=== PATIENT | female | born 1965 | race Caucasian/White ===

== ENCOUNTER 2018-07-04 07:53 | Emergency (ER) | payer BC, OTHER ==
--- NOTE | 2018-07-04 08:05 | UC ---
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 No previous hx. of ankle sprains, fractures or operations. Mild pain. Worse with ambulation. Relieved with non weight bearing. MD note: vital signs stable. Vital signs beyond normal range reviewed. Nurses Note Reviewed. "left ankle pain since yesterday - was jumping around and may have landed on foot wrong. noticed pain shortly afterwards. had pain when ambulating this morning" Visit History Reviewed. Noncontributory to present complaint. Medications & Allergies Reviewed. - History of Current Complaint Stated Complaint: ANKLE INJURY Time Seen by Provider: 07/04/18 07:59 Hx Obtained From: Patient Hx Last Menstrual Period: 02/20 ?: No Severity Initially: Mild - Allergies/Home Medications Allergies/Adverse Reactions: Allergies Allergy/AdvReac Type Severity Reaction Status Date / Time Penicillins Allergy Hives Verified 07/04/18 08:12 ANSON GRASS Allergy Severe EYE Uncoded 07/04/18 08:12 SWELLING, CONGESTION, TROUBLE BREATHING CAT DANDER Allergy Mild EYE Uncoded 07/04/18 08:12 SWELLING, CONGESTION Home Medications: Home Medications Cetirizine* [ZyrTEC 10 MG TAB*] 10 mg PO DAILY 07/04/18 [History Confirmed 07/04] PMH/Surg Hx/FS Hx/Imm Hx - Additional Past Medical History Additional PMH: PMH reviewed. No significant illness, surgery or hospitalization. Family History: -Denies hypertension, heart disease, stroke, diabetes, cancer. 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 The remainder of the review was negative except as stated above in the ROS or HPI. Physical Exam - Summary Physical Exam Summary: Appearance: The patient is well-appearing, is in no pain or distress, and is well-nourished. Eyes: Conjunctiva are clear. Pupils are equal and reactive to light and accommodation. Extra ocular muscle movement is intact. ENT: The hearing is grossly normal, the pharynx is normal, and the TMs are normal. There is no muffled or hoarse voice. No stridor. Neck: The neck is supple and there is no lymphadenopathy. Respiratory: The chest is nontender to palpation and without crepitus. The lungs are clear, there are normal breath sounds, and there is no respiratory distress. No wheezes, rales or rhonchi. Cardiovascular: Heart sounds reveal a regular rate and rhythm. There are no clicks, rubs or murmurs. There are no carotid bruits or thrills. Circulation is grossly intact. Abdomen: The abdomen is soft and nontender. There is no organomegaly. Bowel sounds are present and within normal limits. No point tenderness at McBurneys point. Musculoskeletal: Strength is intact. The patient moves all extremities. Pain with weight bearing left ankle lateral. No edema. Negative anterior drawer sign. Minimal tenderness with palpation. Neurological: The patient is alert. Motor and sensory are examination grossly intact. Speech is normal. Psychological: The patient displays age appropriate behavior Skin: Negative for rashes. 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 X ray: negative for fracture. Diagnosis is first degree ankle sprain. Alvino, gelcast and crutches given with gradual weight bearing recommended. MEDICATIONS REVIEWED: Medications have been included in the original chart and reviewed. HYPERTENSION STATUS REVIEWED. - Differential Dx/Diagnosis Differential Diagnosis/HQI/PQRI: Bursitis, Contusion, Sprain Provider Diagnosis: Left ankle sprain Discharge - Sign-Out/Discharge Documenting (check all that apply): Patient Departure All imaging exams completed and their final reports reviewed: Yes - Discharge Plan Condition: Stable Disposition: HOME Patient Education Materials: Ankle Sprain (DC) Referrals: Brian Manning MD [Medical Doctor] - Additional Instructions: WE DISCUSSED: PLEASE SEEK CARE AT THE EMERGENCY DEPARTMENT IF SYMPTOMS WORSEN OR IF NEW SYMPTOMS DEVELOP. FOLLOW UP WITH YOUR PRIMARY CARE PHYSICIAN IF CONDITION CONTINUES BEYOND 3 DAYS WITHOUT IMPROVEMENT. We are open from 7 a.m. to 10 p.m. Call us with any questions or concerns. YOUR DIAGNOSIS IS: FIRST DEGREE ANKLE SPRAIN, LEFT; there is no evidence that you've injured her Achilles tendon or your foot.. YOUR PRESCRIPTION RECOMMENDATION IS: No medications OTHER INSTRUCTIONS: Use the Alvino wrap, gel cast and crutches and gradually put more weight on your foot when you couldn't step, twisted pushoff and are totally pain-free you can go back to normal activity. For pain: Ibuprofen (Motrin and other brand names) 400-600mg PLUS acetaminophen (Tylenol and other brand names) 500mg - 1000mg every 8 hours. Maximum is 3 doses a day. If this dosage is required for more than 5 days, you should re-check with your doctor. The combination of these two over-the- counter medications can be more effective than each one taken alone. Please check with the pharmacist if you have questions about your allergies to these medications. - Billing Disposition and Condition Condition: STABLE Disposition: Home
--- OUTSIDE RECORDS SUMMARY | 2018-07-04 08:07 | XMS REPORT | Continuity of Care Document ---
:1965 External Reference #:[id number] Author Name Triny Tai M.D. 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 [address] PayID: [id number] JIMMY [place] [address] Advance Directives Description No Information Available Problems Description No Information Family History Date Family Member(s) Observation Comments Mother Cancer, Cervical Children 2 Social History Type Date Description Comments Sex Unknown Marital Status Lives With Spouse Lives With , Tariq Zimmer, and two children. Tobacco Use Start: Unknown Never Smoked Cigarettes Allergies, Adverse Reactions, Alerts Date Description Reaction Status Severity Comments 05/30/2002 Amoxicillin Active 11/17/2003 PCN Active itching. Medications Medication Date Status Form Strength Qnty SIG Indications Ordering Provider Ondansetron 06/18 Active Tablets 4mg 6tabs 1 by mouth G43.009 Triny /2018 Dispers twice per P. day as Blegen, needed M.D. nausea/ vomiting Acetaminophen-Co 06/18 Active Tablets 300-30mg 6tabs take 1-2 G43.009 Triny whyte #3 tablets by P. mouth up to Blegen, twice per M.D. day as needed for persistent migraine Multiple Vitamin 06/18 Active Tablets 1 by mouth Triny every day P. Blegen, M.D. Vitamin D-3 06/18 Active Capsules 1000Unit 1 by mouth every day Anjelica Tai M.D. Tumeric 06/18 Active supplement Anjelica Tai M.D. No Active 06/18 Hx Unknown Medications - 06/18 No Active 07/26 Hx Unknown Medications - 07/26 Doxycycline 07/26 Hx Capsules 100mg 20cap 1 take by Brian Hyrandeeate /2017 s mouth [place] - capsule 2 , 06/18 times day for 10 days for infection Pseudoephedrine 07/26 Hx Tablets 30mg 60tab 1 tab by J01.41 Brian HCL s mouth three [place] - times a day , 06/18 congestion Fluticasone 07/26 Hx Suspension 50mcg/Act 1unit 1 puff J01.41 Brian Propionate s daily [place] - , 06/18 Azithromycin 05/12 Hx Tablets 250mg 6tabs take 2 Brian tablets by [place] - mouth one , 07/26 time take one daily for 4 days Pseudoephedrine 01/13 Hx Tablets 30mg 60tab 1 tab by J01.41 Brian HCL s mouth three [place] - times a day , 07/26 congestion Fluticasone 01/13 Hx Suspension 50mcg/Act 1unit 1 puff J01.41 Brian Propionate s daily [place] - , 07/26 Guaifenesin-Code 07/22 Hx Syrup 100-10mg/ 240ml 1-2 J01.41 Precious ine 5ML teaspoon Otoniel, - every 4-6 CERTIFIED ART THERAPIST-C 07/26 hours needed cough Ceftin 06/16 Hx Tablets 500mg 20tab 1 by mouth J01.41 Precious /2014 s twice a day Otoniel, - for 10 days CERTIFIED ART THERAPIST-C 07/26 for sinus infection Nasonex 10/23 Hx Suspension 50mcg/Act 17gm 2 sprays 381.04 José Miguelwnti /2013 each Guillaume Mcpherson, - nostril CERTIFIED ART THERAPIST-C 07/26 daily for rhinitis and ear pressure No Active 04/18 Hx Unknown Medications /2012 - 10/23 Azithromycin 04/01 Hx Tablets 250mg 6tabs take 2 tablets Otoniel, - today then CERTIFIED ART THERAPIST-C 04/18 1 tablet daily for the next 4 days Cefuroxime 03/13 Hx Tablets 250mg 20tab one po bid 381.01 Precious Axetil s for 10 days Tanesha Frederick CERTIFIED ART THERAPIST-C 04/18 Nasonex 06/16 Hx Suspension 50mcg/Act 1mont 2 sprays 381.81 Shawnti /2011 h each Guillaume Mcpherson, - nostril CERTIFIED ART THERAPIST-C 04/18 daily for rhinitis Zithromax Z-Mayo 06/11 Hx Tablets 250mg 6tabs Two PO qd Today And K.W. - Then One PO Vin, 06/17 qd For 4 M.D. /2006 Days Zithromax Z-Mayo 01/17 Hx Tablets 250mg 1Pack two po qd today and P. - then one po Blegen, 06/11 qd for 4 M.D. /2006 days Zithromax 04/18 Hx Tablets 500mg 3tabs 1 qd x 3 461.8 days for Guillaume Mcpherson, - sinus CERTIFIED ART THERAPIST-C 04/18 infection, may repeat in 10 days if needed Zithromax Z-Mayo 04/09 Hx Tablets 250mg 6tabs Two PO qd Today And P. - Then One PO Blegen, 04/18 qd For 4 M.D. Days Zithromax Z-Mayo 03/04 Hx Tablets 250mg 6tabs 2 po on day 786.2 Alicia /2003 1, 1 po on A. - days 2-5 Naomi, 12/30 F.N.P.C. /2004 Tylenol W03/04 Hx Tablets 300mg;30 15tab one or tWO 786.2 Alicia Codeine #3 /2004 mg s Tabs PO A. - Every 4-6 Naomi, 12/30 Hours prn F.N.P.C. /2004 Cough Cephalexin 04/18 Hx Capsules 500mg 14cap one po bid s x 7 days Tanesha Dominguez M.DBhavani 05/04 Gentamycin Ophth 04/18 Hx 1 drop each Roberto Carlos eye qid Laceyinger - until clear Catalina 12/30 Meclizine 12/25 Hx Tablets 25mg 60tab 1 tab po qd s - bid Tanesha Roe M.DBhavani 12/30 Zithromax 08/29 Hx Tablets 250mg 10tab 2 Pills s Each Day X5 Anton, - Days COO 08/29 Zithromax 05/30 Hx Tablets 250mg 6tabs 2 on day one, then [place], - one qd x4 COO Medications Administered in Office Medication Date Status Form Strength Qnty SIG Indications Ordering Provider Injection Administered Injection Triny Ketorolac 019 P. Blegen, Tromethamine M.D. Per 15 MG (Toradol) Immunizations CPT Code Status Date Vaccine Lot # [id number] Given 06/18/2018 Tdap (Adacel) [id number] Given 01/23/2018 Influenza Virus Vaccine, Quadrivalent, 3 Yr > Quad, Preserv Free [id number] Given 10/24/2001 DT (Adult) Vital Signs Date Vital Result Comment 06/18/2018 4:16pm Weight 170.00 lb Weight 77.112 kg BP Systolic 110 mmHg BP Diastolic 72 mmHg Heart Rate 70 /min Body Temperature 97.8 F Respiratory Rate 16 /min O2 % BldC Oximetry 98 % 07/26/2017 2:08pm Weight 153.00 lb Weight 69.401 kg BP Systolic 102 mmHg BP Diastolic 70 mmHg Heart Rate 80 /min Body Temperature 97.6 F Respiratory Rate 16 /min 05/12/2015 9:49am Weight 157.00 lb Weight 71.215 kg BP Systolic 104 mmHg BP Diastolic 68 mmHg Heart Rate 67 /min Body Temperature 99.9 F O2 % BldC Oximetry 98 % 01/13/2015 11:50am Weight 153.00 lb Weight 69.401 kg BP Systolic 108 mmHg BP Diastolic 70 mmHg Heart Rate 76 /min Body Temperature 97.6 F 07/22/2014 8:19am Weight 156.00 lb Weight 70.762 kg BP Systolic 98 mmHg BP Diastolic 70 mmHg Heart Rate 93 /min Body Temperature 100.3 F O2 % BldC Oximetry 96 % on room air 06/16/2014 4:05pm Weight 163.00 lb Weight 73.937 kg BP Systolic 110 mmHg BP Diastolic 70 mmHg Heart Rate 72 /min Body Temperature 96.7 F O2 % BldC Oximetry 97 % 10/23/2013 11:48am Weight 155.00 lb Weight 70.308 kg BP Systolic 98 mmHg BP Diastolic 66 mmHg Heart Rate 72 /min Body Temperature 96.8 F 04/18/2013 2:22pm Weight 154.00 lb Weight 69.854 kg BP Systolic 110 mmHg BP Diastolic 64 mmHg Heart Rate 68 /min Body Temperature 97.8 F 03/13/2012 10:55am Weight 146.00 lb Weight 66.226 kg BP Systolic 96 mmHg BP Diastolic 64 mmHg Heart Rate 66 /min Body Temperature 97.9 F O2 % BldC Oximetry 99 % 09/04/2011 12:09pm Weight 140.00 lb Weight 63.504 kg BP Systolic 94 mmHg BP Diastolic 56 mmHg Heart Rate 73 /min Body Temperature 97.4 F O2 % BldC Oximetry 98 % 06/16/2011 10:27am Weight 140.00 lb Weight 63.504 kg BP Systolic 90 mmHg BP Diastolic 60 mmHg Heart Rate 84 /min Body Temperature 97.7 F 06/16/2010 2:34pm Weight 144.00 lb Weight 65.318 kg BP Systolic 94 mmHg BP Diastolic 60 mmHg Heart Rate 76 /min Body Temperature 97.7 F 05/28/2008 8:48am Weight 152.00 lb Weight 68.947 kg BP Systolic 108 mmHg BP Diastolic 70 mmHg Body Temperature 96.8 F oral 05/26/2008 2:05pm Weight 156.00 lb Weight 70.762 kg BP Systolic 120 mmHg BP Diastolic 70 mmHg Body Temperature 96.8 F oral 06/14/2006 1:06pm Weight 153.00 lb Weight 69.401 kg BP Systolic 130 mmHg BP Diastolic 60 mmHg Body Temperature 97.0 F Height 62.5 inches 5'2.50" BMI (Body Mass Index) 27.5 kg/m2 05/25/2006 11:14am Weight 152.00 lb Weight 68.947 kg BP Systolic 100 mmHg BP Diastolic 60 mmHg Body Temperature 97.8 F Height 62.5 inches 5'2.50" BMI (Body Mass Index) 27.4 kg/m2 01/17/2006 9:39am Weight 151.00 lb Weight 68.494 kg BP Systolic 120 mmHg BP Diastolic 70 mmHg Heart Rate 64 /min Body Temperature 96.8 F Height 62.5 inches 5'2.50" BMI (Body Mass Index) 27.2 kg/m2 12/06/2005 12:55pm Weight 149.00 lb Weight 67.586 kg BP Systolic 108 mmHg BP Diastolic 62 mmHg Heart Rate 60 /min Height 62.5 inches 5'2.50" BMI (Body Mass Index) 26.8 kg/m2 Last Menstrual Period [id number] 04/18/2005 9:19am Weight 145.00 lb Weight 65.772 kg BP Systolic 100 mmHg BP Diastolic 60 mmHg Body Temperature 97.7 F 12/30/2004 2:27pm Weight 148.00 lb Weight 67.133 kg BP Systolic 120 mmHg BP Diastolic 60 mmHg Body Temperature 98.8 F 03/04/2004 11:25am Weight 148.00 lb Weight 67.133 kg BP Systolic 118 mmHg BP Diastolic 70 mmHg Body Temperature 97.0 F 11/17/2003 1:54pm Weight 147.00 lb Weight 66.679 kg BP Systolic 110 mmHg BP Diastolic 64 mmHg Body Temperature 97.0 F 04/24/2003 10:51am Weight 148.00 lb Weight 67.133 kg BP Systolic 100 mmHg BP Diastolic 60 mmHg Body Temperature 97.1 F 12/25/2002 10:18am Weight 145.00 lb Weight 65.772 kg BP Systolic 94 mmHg BP Diastolic 62 mmHg Heart Rate 64 /min Body Temperature 97.2 F 08/29/2002 9:36am Weight 150.00 lb Weight 68.040 kg BP Systolic 100 mmHg BP Diastolic 60 mmHg Body Temperature 98.1 F 05/30/2002 2:21pm Weight 148.00 lb Weight 67.100 kg BP Systolic 100 mmHg BP Diastolic 60 mmHg Body Temperature 97.3 F 10/31/2001 11:15am Weight 149.00 lb Body Temperature 97.2 F Results Test Date Facility Test Result H/L Range Note Laboratory test 01/13/2015 [facility] Laboratory Culture SEE RESULT 1 finding [phone] Throat BELOW CBC 12/06/2005 [facility] WBC 6.9 x103 4.3-10.9 [phone] RBC 4.39 x106 3.80-5.30 Hemoglobin 13.3 g/dL 11.8-15.8 Hematocrit 39.3 % 35.0-47.0 MCV 89.4 fl 82.0-98.0 MCH 30.4 pg 27.5-33.5 MCHC 34.0 g/dL 32.0-36.0 RDW 12.8 % 11.5-14.5 Platelet Count 187 x103 130-400 MPV 10.0 fl 6.5-10.5 Segmented Neutrophils 65.7 % 44.0-74.0 Lymphocytes 26.6 % 15.0-45.0 Monocytes 6.5 % 2.0-13.0 Eosinophils 0.7 % 0.0-6.0 Basophils 0.5 % 0.0-2.0 Neutrophil Absolute 4.5 x103 1.4-7.0 Lymphocytes Absolute 1.8 x103 1.0-3.4 Monocyte Absolute 0.4 x103 0.2-1.0 Eosinophil Absolute 0.0 x103 0.0-0.5 Basophil Absolute 0.0 x103 0.0-0.2 Regional Allergy 12/06/2005 [facility] Interpretation * 2 Panel [phone] Total Ige 315.00 kU/L 3 Jim Grass 3.42 kU/L AB --- Class II AB B[place] Grass <0.35 kU/L --- Class 0 Common Ragweed <0.35 kU/L --- Class 0 Slovenian Plaintain <0.35 kU/L --- Class 0 [place] <0.35 kU/L --- Class 0 Elm <0.35 kU/L --- Class 0 Cladospor/Hormodendrum <0.35 kU/L --- Class 0 A. Tenuis <0.35 kU/L --- Class 0 D. Farinae <0.35 kU/L --- Class 0 Milk <0.35 kU/L --- Class 0 Soybean <0.35 kU/L --- Class 0 Wheat <0.35 kU/L --- Class 0 Cat Dander 0.49 kU/L AB --- Class I AB Dog Dander <0.35 kU/L --- Class 0 Cockroach <0.35 kU/L --- Class 0 Tree Allergen Panel 12/06/2005 [facility] Isabella <0.35 kU/L [phone] --- Class 0 Maple/[place] <0.35 kU/L --- Class 0 Bashir <0.35 kU/L --- Class 0 [place] <0.35 kU/L --- Class 0 Birch <0.35 kU/L --- Class 0 [place] <0.35 kU/L --- Class 0 [place] <0.35 kU/L [place] <0.35 kU/L --- Class 0 Syrian Beech <0.35 kU/L --- Class 0 [place] <0.35 kU/L --- Class 0 [place] (Tree) <0.35 kU/L --- Class 0 [place] (Tree) <0.35 kU/L [place] <0.35 kU/L --- Class 0 Laboratory 12/06/2005 [facility] Laboratory Cytology ----- 4, 5 test finding [phone] <SEE NOTE> Laboratory 03/04/2004 [facility] Strep Screen NEG Neg test finding (607)- - Laboratory 11/17/2003 [facility] Strep Screen NEG Neg test finding (607)- - Laboratory 08/29/2002 [facility] Strep Screen POSITIVE Neg test finding (607)- - 1 SEE RESULT BELOW Name: PAWEL ZIMMER : [address]: Brian Manning MD Acct: [id number] Unit: [id number] AGE: 49 Location: [facility] Re01/13/15 SEX: F Status: REG REF SPEC: [id number] LESLIE: 01/13/15-12[address] [facility] [address]: Brian Manning MD REQ: [id number] RECD: 01/13/15 STATUS: COMP _ SOURCE: THROAT SPDESC: ORDERED: Throat Culture Procedure Result Verified Site Throat Culture Final 01/15/15827 ML Organism 1 NORMAL CHICHI Quantity 3+ * ML - MAIN LAB ([facility]) . END OF REPORT * ML=Testing performed at Main Lab DEPARTMENT OF PATHOLOGY, [address] [place] [address] Patrice Fong M.D. Director [facility] # [id number] 2 . Levels of Specific IgE Class Description of Class <0.35 kU/L O Absent/Undetectable 0.35 - 0.70 kU/L I Low 0.70 - 3.50 kU/L II Moderate 3.60 - 17.50 kU/L III High 17.50 - 50.00 kU/L IV Very High 50.00 - 100.00 kU/L V Very High >100.00 kU/L Very High 3 <25 kU/L: Negative 25-100 kU/L: Borderline >100 kU/L: Positive 4 SHared result with patient on phone, and she will RTO yearly for paps. 5 --- RUN DATE: 12/12/05 [facility] NMI LIVE PAGE 1 RUN TIME: 1559 Specimen Inquiry RUN USER: INTERFACE [id number] PAWEL ZIMMER 40/F <REG REF 12/06> ([id number]) Nadira Chow MD. -- Specimen: [id number] LAURO Spec Date: 12/06/[address]: Monica Banuelos MD. Spec Type: CYTOLOGY Received: 12/08/05-1433 Copies to: SOURCE ECTOCERVICAL/ENDOCERVICAL Thin Prep with Reflex HPV Test PATIENT INFORMATION ACTUAL COLLECTION DATE: 12/06/05 LAST MENSTRUAL PERIOD: 11/22/05 ADEQUACY OF SPECIMEN Satisfactory for evaluation * Transformation zone component not identified * DIAGNOSIS NEGATIVE FOR INTRAEPITHELIAL LESION OR MALIGNANCY * The Pap Smear is a screening test designed to aid in the detection of premalign ant and malignant conditions of the uterine cervix. It is not a diagnostic procedure an d should not be used as the sole means of detecting cervical cancer. Both false-positive and false-negative reports do occur. Depending on your risk status, a Pap smear supa uld be obtained and evaluated every one to three years. Signed Cameron CONTRERAS(ASCP) 12/12/05 -- -- DEPARTMENT OF PATHOLOGY, [address] [place] [address] [facility] Permit #[id number] Conner Hooker II, M.D. Director Patrice Fong M.D. Cotton Weigher Operator D irector -- Procedures Description No Information Available Encounters Type Date Location Provider Dx Diagnosis Office Visit 07/26/2017 Main Office Yasmine Dumont.90 Acute sinusitis, 2:00p unspecified Office Visit 05/12/2015 Main Office Yasmine Dumont.90 Acute sinusitis, 9:15a unspecified Office Visit 01/13/2015 Main Office Alexia Dumont01.41 Acute recurrent 11:45a pansinusitis Office Visit 07/22/2014 Main Office Precious Frederick, 461.8 Sinusitis Acute Other 8:15a CERTIFIED ART THERAPIST-C Office Visit 06/16/2014 Main Office Kane Mcpherson, 465.9 URI Upper 4:00p CERTIFIED ART THERAPIST-C Respiratory Infections Acute Unspec Sites 461.8 Sinusitis Acute Other Office Visit 10/23/2013 11:45a Main Office Kane Galaviz 381.04 Otitis Media Storm, CERTIFIED ART THERAPIST-C Allergic Serous Acute Office Visit 04/18/2013 2:15p Main Office Kane Galaviz 465.9 URI Upper Storm, CERTIFIED ART THERAPIST-C Respiratory Infections Acute Unspec Sites Office Visit 03/13/2012 10:45a Main Office Precious Frederick 381.01 Otitis Media Serous CERTIFIED ART THERAPIST-C Acute Office Visit 09/04/2011 12:00p Main Office Kane Galaviz 461.8 Sinusitis Acute Storm, CERTIFIED ART THERAPIST-C Other Office Visit 06/16/2011 10:00a Main Office Kane Galaviz 381.81 Eustachian Tube Storm, CERTIFIED ART THERAPIST-C Dysfunction Office Visit 06/16/2010 2:30p Main Office Walter Roe M.D. 381.81 Eustachian Tube Dysfunction Office Visit 05/28/2008 8:45a Main Office Kane Galaviz 461.8 Sinusitis Acute Storm, CERTIFIED ART THERAPIST-C Other Office Visit 05/26/2008 2:00p Main Office Kane Galaviz 465.9 URI Upper Storm, CERTIFIED ART THERAPIST-C Respiratory Infections Acute Unspec Sites Office Visit 06/14/2006 1:00p Main Office Alicia Lopez 465.9 URI Upper Naomi, Respiratory F.N.P.C. Infections Acute Unspec Sites 787.91 Diarrhea 786.2 Cough 787.02 Nausea Alone Office Visit 05/25/2006 11:15a Main Office Nadira Rodriguez 465.9 URI Upper Catalina Banuelos Respiratory Infections Acute Unspec Sites Office Visit 01/17/2006 9:45a Main Office Triny Dejesus 461.0 Sinusitis Acute Blegen, M.D. 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 Other Office Visit 12/30/2004 2:30p Main Office Bean Salazar, 465.9 URI Upper M.D. Respiratory Infections Acute Unspec Sites Office Visit 03/04/2004 11:15a Main Office Alicia Lopez 786.2 Cough Naomi, F.N.P.C. 462 Pharyngitis Acute Office Visit 11/17/2003 1:30p Main Office Walter Roe 465.9 URI Upper M.D. Respiratory Infections Acute Unspec Sites Office Visit 04/24/2003 10:45a Main Office Precious Dominguez, 461.0 Sinusitis Acute M.D. Maxillary Office Visit 12/25/2002 10:15a Main Office Walter Roe, 386.30 Labyrinthitis Unspec M.D. Office Visit 08/29/2002 9:30a Main Office Ann Walton, 034.0 Streptococcal Sore COO Throat Office Visit 05/30/2002 2:15p Main Office Ann Anton, 461.0 Sinusitis Acute COO Maxillary Office Visit 10/31/2001 11:00a Main Office Alicia Lopez V58.3 Surgical Dressings & Naomi, Sutures Encounter F.N.P.C. Office Visit 06/24/2001 11:30a Main Office Alicia Lopez 473.9 Sinusitis Chronic Naomi, Unspec F.N.P.C. Plan of Treatment Future Appointment(s):08/09/2018 3:15 pm - [facility]06/18/2018 - Triny Tai M.D.G43.009 Migraine without aura, not intractable, without status migraNew Medication:Ondansetron 4 mg - 1 by mouth twice per day as needed nausea/ vomitingAcetaminophen-Codeine #3 300-30 mg - take 1-2 tablets by mouth up to twice per day as needed for persistent migraineComments:NO CONCERNING FINDINGS ON EXAM. LIKE HER TYPICAL MIGRAINE EXCEPT LONGER DURATION. DISCUSSED TREAT WITH TORADOL INJECTION HERE - DISCUSSED MED, ACTION, SIDE EFFECTS, PROPER DOSING - PT AGREED- GIVEN 60 MG IM AND PT STAYED FOR 20+ MINUTES, TOLERATED FINE, HAD SOME IMPROVEMENT IN HER HEADACHE SX AT 20 MINUTES. DISCUSSED IF NEEDED CAN TAKE TYLENOL WITH CODEINE 1-2 TABLETS TONIGHT AND UP TO TWICE PER DAY.PT SAYS TOLERATED CODEINE DECADES AGO WITH COUGH SYRUP WITH CODEINE. ALSO DISCUSSED ONDANSETRON NEEDED FOR NAUSEA. RX SENT. OVERDUE FOR PHYSICAL/ SCREENINGS- HAS NOT HAD MAMMOGRAM OR COLONOSCOPY OROTHER SCREENINGS. DISCUSSED TDAP- PT WOULD LIKE TO GET TAYLOR, INSTEAD OF NEXT TIME.Follow up:. -- TORADOL 60 MG X 1 DOSE -- PHYSICAL -- ALSO F/U MIGRAINESRecommendations:-- WE GAVE YOU A DOSE OF TORADOL INJECTION TO HELP - IT IS AN ANTIINFLAMMATORY THAT HELPS WITH MIGRAINE PAIN -- DO NOT TAKE ANY IBUPROFEN OR NAPROXEN TONIGHT THAT IS A SIMILAR MEDICATION -- IF YOU ARE STILL HAVING SIGNIFICANT HEADACHE AFTER 1-2 HOURS, YOU CAN TAKE THE TYLENOL WITH CODEINE- 1-2 TABLETS TO HELP STOP THE MIGRAINE -- IF YOU HAVE WORSENING SYMPTOMS, YOU NEED TO CALL 911 AND GO TO THE EMERGENCY ROOM -- YOU CAN TAKE ONDANSETRON 4 MG/ ZOFRAN ANTINAUSEA MEDICATION UP TO TWICE PER DAY IFNEEDED -- REMINDER TO SCHEDULE A PHYSICAL YOU ARE OVERDUE FOR SCREENINGS
[2018-07-04 08:12] VITALS: BP 116/57
== END 2018-07-04 09:36 | disposition home or self-care (01) ==
LOC: UCEAST 07:53
DX: S93.402A Sprain of unspecified ligament of left ankle, initial encounter (principal); Z91.09 Other allergy status, other than to drugs and biological substances; Z88.0 Allergy status to penicillin; X58.XXXA Exposure to other specified factors, initial encounter; Y92.9 Unspecified place or not applicable
CPT/HCPCS: 99213; G0463